=== PATIENT | female | born 1985 | race Caucasian/White ===

== ENCOUNTER 2017-02-24 17:50 | Emergency (ER) | payer OTHER ==
[2017-02-24 18:01] VITALS: BP 122/60; PULSE 85; RESP 16; TEMP 98.3
[2017-02-24] MEDS ORDERED: valACYclovir 500 MG TAB PO STA (18:17)
--- NOTE | 2017-02-24 18:20 | ED ---
ENT HPI - General Chief complaint: ENT Stated complaint: SUN POISENING ON LIPS Time Seen by Provider: 02/24/17 18:07 Source: patient, RN notes reviewed Mode of arrival: ambulatory Limitations: no limitations - History of Present Illness Initial comments: 32 yo female presents to the ER with cc of sores on the lips. Patient states that this started yesterday. Patient states she was in [place] for a week and states that she did not wear sunscreen her last day there. Patient states that her lips swollen and tender. Patient states that she took Tylenol without much improvement. Patient states she is currently . Patient states she's not having any other symptoms at this time.Patient denies any recent fever, chills, shortness of breath, chest pain, back pain, abdominal pain, nausea vomiting, numbness or tingling, dysuria or hematuria, constipation or diarrhea, headaches or visual changes, or any other current symptoms. - Related Data Home Medications Medication Instructions Recorded Confirmed Pnv with Ca,No.72/Iron/FA 1 each PO 02/24/17 [ Plus Tablet] Previous Rx's Medication Instructions Recorded valACYclovir HCL [Valtrex] 2,000 mg PO Q12HR #2 tab 02/24/17 Allergies Allergy/AdvReac Type Severity Reaction Status Date / Time chlorhexidine Allergy Rash/Hives Verified 02/24/17 18:03 Sulfa (Sulfonamide Allergy Unknown Verified 02/24/17 18:03 Antibiotics) Childhood Review of Systems ROS Statement: Those systems with pertinent positive or pertinent negative responses have been documented in the HPI. ROS Other: All systems not noted in ROS Statement are negative. Past Medical History Additional Past Medical History / Comment(s): endometriosis, kidney stones History of Any Multi-Drug Resistant Organisms: None Reported Past Surgical History: Breast Surgery Additional Past Surgical History / Comment(s): cervical Past Psychological History: No Psychological Hx Reported Smoking Status: Never smoker Past Alcohol Use History: None Reported Past Drug Use History: None Reported General Exam Limitations: no limitations General appearance: alert, in no apparent distress Head exam: Present: atraumatic, normocephalic, normal inspection Eye exam: Present: normal appearance, PERRL, EOMI. Absent: scleral icterus, conjunctival injection, periorbital swelling ENT exam: Present: normal oropharynx, other (Does appear to have multiple blistering vesicles to the lip diffusely.) Neck exam: Present: normal inspection. Absent: tenderness, meningismus, lymphadenopathy Respiratory exam: Present: normal lung sounds bilaterally. Absent: respiratory distress, wheezes, rales, rhonchi, stridor Cardiovascular Exam: Present: regular rate, normal rhythm, normal heart sounds. Absent: systolic murmur, diastolic murmur, rubs, gallop, clicks Neurological exam: Present: alert, oriented X3 Psychiatric exam: Present: normal affect, normal mood Skin exam: Present: warm, dry, intact, normal color. Absent: rash Course Vital Signs 02/24/17 17:55 Temperature 98.3 F Pulse Rate 85 Respiratory 16 Rate Blood Pressure 122/60 O2 Sat by Pulse 99 Oximetry Medical Decision Making - Medical Decision Making 32-year-old female presents with what appears to be a herpes labialis outbreak. We will put her on Valtrex. We did discuss continuing Tylenol for pain control. Discussed return parameters and follow-up. We discussed all the patient's questions. She stated that she understood and is in agreement with plan. She will be discharged. Disposition Clinical Impression: Herpes labialis Disposition: HOME SELF-CARE Condition: Stable Instructions: Valacyclovir (By mouth) Additional Instructions: Please use medication as discussed. Please follow up with family doctor if symptoms have not improved over the next two days. Please return to the emergency room if your symptoms increase or worsen or for any other concerns. Prescriptions: valACYclovir HCL [Valtrex] 2,000 mg PO Q12HR #2 tab Referrals: Maribeth Jc DO [Primary Care Provider] - 1-2 days Time of Disposition: 18:19
== END 2017-02-24 18:31 | disposition home or self-care (01) ==
LOC: EC 17:50
DX: O98.511 Other viral diseases complicating pregnancy, first trimester (principal); B00.1 Herpesviral vesicular dermatitis; Z3A.11 11 weeks gestation of pregnancy; Z79.899 Other long term (current) drug therapy; Z88.2 Allergy status to sulfonamides; Z88.8 Allergy status to other drugs, medicaments and biological substances
CPT/HCPCS: 99282

== ENCOUNTER → 2019-06-06 | Outpatient (CLI) | payer BC ==
--- NOTE | 2019-06-07 08:13 | US ---
EXAMINATION TYPE: US transvaginal DATE OF EXAM: 06/06/2019 COMPARISON: NONE CLINICAL HISTORY: T83.9XXA IUD Complication; N94.1 Dyspareunia. TECHNIQUE: Transvaginal (TV). Date of LMP: 05/27/19 EXAM MEASUREMENTS: Uterus: 7.5 x 3.7 x 4.3 cm Endometrial Stripe: 0.5 cm Right Ovary: 3.0 x 2.3 x 2.1 cm Left Ovary: 2.4 x 2.5 x 2.1 cm 1. Uterus: Anteverted wnl 2. Endometrium: wnl 3. Right Ovary: wnl 4. Left Ovary: wnl 5. Bilateral Adnexa: prominent vasculature in left adnexa 6. Posterior cul-de-sac: wnl IMPRESSION: 1. Centrally placed intrauterine device. No endometrial thickening. Physiologic ovarian follicles are seen bilaterally, peripherally oriented that can also be seen in polycystic ovarian syndrome. Correl ate with serum laboratory values and clinical symptoms. 2. Prominent vasculature of the left adnexa can be seen in pelvic congestion syndrome.
== END | disposition home or self-care (01) ==
LOC: RADUSWWP 15:35
PROVIDERS: ATTEND Obstetrics & Gynecology
DX: N94.10 Unspecified dyspareunia (principal); Z97.5 Presence of (intrauterine) contraceptive device
CPT/HCPCS: 76830

== ENCOUNTER → 2023-12-10 | Outpatient (CLI) | payer BC ==
--- NOTE | 2023-12-13 19:39 | MM ---
Reason for Exam: Screening (asymptomatic). Indicated Problems: Lump or thickening of the left side for 3 Day(s). Patient History: Menarche at age 13. First Full-Term at age 32. Late child-bearing (after 30). Patient has history of breast feeding. Patient used Hormonal Contraceptives for 15 years. 08/2012, Bilateral Implants. Last menstrual period: 11/21/2023 Risk Values: Marjorie 5 year model risk: 0.5%. NCI Lifetime model risk: 13.8%. Tissue Density: The breast tissue is heterogeneously dense. This may lower the sensitivity of mammography. Findings: Analyzed By CAD. Bilateral retropectoral silicone implants. Multiple areas of bilateral nodularity are present. Palpable marker placed along the left breast. No suspicious microcalcification is seen. Overall Assessment: Incomplete: need additional imaging evaluation, BI-RAD 0 Management: Special View Mammogram of both breasts. Diagnostic Breast Ultrasound of both breasts. Additional views right breast to include 3-D CC rolled and 3-D lateral views. Additional views left breast to include 3-D CC rolled and 3 lateral views. Subsequent bilateral breast ultrasounds. Also include the patient's left-sided palpable site. [facility] will attempt to contact patient to return for supplemental views and ultrasound if indicated. Electronically signed and approved by: Silke Styles M.D. Radiologist
== END | disposition home or self-care (01) ==
LOC: RADMAMWWP 12:02
PROVIDERS: ATTEND Obstetrics & Gynecology
DX: Z12.31 Encounter for screening mammogram for malignant neoplasm of breast (principal); N63.20 Unspecified lump in the left breast, unspecified quadrant; Z98.82 Breast implant status
CPT/HCPCS: 77063; 77067

== ENCOUNTER → 2023-12-15 | Outpatient (CLI) | payer BC ==
--- NOTE | 2023-12-15 08:22 | MM ---
Reason for Exam: Additional evaluation requested from abnormal screening. Last screening mammogram was performed less than 1 month ago. Patient History: Menarche at age 13. First Full-Term at age 32. Late child-bearing (after 30). Patient has history of breast feeding. Patient used Hormonal Contraceptives for 15 years. 08/2012, Bilateral Implants. Risk Values: Marjorie 5 year model risk: 0.5%. NCI Lifetime model risk: 13.8%. Prior Study Comparison: 12/10/2023 Bilateral MG 3D screen mammo imp/cad., [facility]. Tissue Density: The breast tissue is heterogeneously dense. This may lower the sensitivity of mammography. Findings: Analyzed By CAD. On the right, the lateral area of nodular asymmetric density does not clearly persist. However, there is a persisting 1.2 cm isodense nodule posterior 12:00 position. Ultrasound recommended. On the left, scattered small millimeter and smaller circumscribed nodules remain. Further ultrasound evaluation recommended to include the patient's palpable site. Overall Assessment: Incomplete: need additional imaging evaluation, BI-RAD 0 Management: Diagnostic Breast Ultrasound of both breasts. Electronically signed and approved by: Silke Styles M.D. Radiologist
--- NOTE | 2023-12-15 09:04 | USB ---
Reason for Exam: Clinical finding. Patient History: Menarche at age 13. First Full-Term at age 32. Late child-bearing (after 30). Patient has history of breast feeding. Patient used Hormonal Contraceptives for 15 years. 08/2012, Bilateral Implants. Risk Values: Marjorie 5 year model risk: 0.5%. NCI Lifetime model risk: 13.8%. Technique: Method: Targeted. Prior Study Comparison: 12/10/2023 Bilateral MG 3D screen mammo imp/cad., [facility]. Findings: The whole breast of the left breast, the upper outer quadrant of the right breast, the axilla of both breasts and the retroareolar of both breasts were scanned. Targeted ultrasound right breast upper outer quadrant 9:00 to 12:00 including scanning of the subareolar region and axilla. * At the 12:00 position, 6 cm from the nipple, there is a 1.3 cm benign cyst, likely mammographic correlate. * Additional scattered small cysts and cyst clusters are present measuring up to 6 mm at the 9:00 position. * No suspicious solid area or axillary lymphadenopathy. Whole left breast ultrasound is performed including scanning of the subareolar region and axilla. * Scattered small benign cysts are present for example, 2 mm at 12:00, 7 mm at 2:00, 6 mm at 5:00, and 4 mm at 11:00. This 11:00 cyst corresponds to the patient's palpable site. No suspicious solid mass or axillary lymphadenopathy. Underlying bilateral breast implants. Overall Assessment: Probably benign, BI-RAD 3 Management: Diagnostic Mammogram of both breasts in 6 months. To reassess the bilateral areas of breast nodularity, likely corresponding to the cysts on ultrasound. A clinical breast exam by your physician is recommended on an annual basis and results should be correlated with mammographic findings. This exam should not preclude additional follow-up of suspicious palpable abnormalities. Results were given to the patient verbally at the time of exam. Electronically signed and approved by: Silke Styles M.D. Radiologist
== END | disposition home or self-care (01) ==
LOC: RADMAMWWP 07:48
PROVIDERS: ATTEND Obstetrics & Gynecology
DX: R92.8 Other abnormal and inconclusive findings on diagnostic imaging of breast (principal)
CPT/HCPCS: 77062; 77066

== ENCOUNTER → 2024-10-12 | Outpatient (CLI) | payer BC ==
--- NOTE | 2024-10-12 08:35 | MM ---
Reason for Exam: Follow-up at short interval from prior study. Last screening mammogram was performed 10 month(s) ago. Patient History: Menarche at age 13. First Full-Term at age 32. Late child-bearing (after 30). Patient has history of breast feeding. Patient used Hormonal Contraceptives for 15 years. 08/2012, Bilateral Implants. Risk Values: Marjorie 5 year model risk: 0.6%. NCI Lifetime model risk: 13.7%. Prior Study Comparison: 12/10/2023 Bilateral MG 3D screen mammo imp/cad., [facility]. 12/15/2023 Bilateral MG 3D work up w/cad [facility], [facility]. 12/15/2023 Bilateral US breast workup limited [facility], [facility]. Tissue Density: The breasts are heterogeneously dense, which may obscure small masses. Findings: Bilateral breast implants remain intact. Chronic nodularity seen bilaterally. Follow-up ultrasound is advised. No suspicious microcalcifications present. Overall Assessment: Incomplete: need additional imaging evaluation, BI-RAD 0 Management: Diagnostic Breast Ultrasound of both breasts. . Results were given to the patient verbally at the time of exam. Patient should continue monthly self-breast exams. A clinical breast exam by your physician is recommended on an annual basis. This exam should not preclude additional follow-up of suspicious palpable abnormalities. Note on Marjorie scores and lifetime risk: 1. A Marjorie score greater than 3% is considered moderate risk. If this is the case, consider specialist referral to assess eligibility for a risk reducing agent. 2. If overall lifetime risk for the development of breast cancer is 20% or higher, the patient may qualify for future screening with alternating mammogram and breast MRI. [facility], , 10/12/2024 8:33 AM. Electronically signed and approved by: Compa Moore M.D. Radiologis
--- NOTE | 2024-10-12 09:17 | USB ---
Reason for Exam: Follow-up at short interval from prior study. Patient History: Menarche at age 13. First Full-Term at age 32. Late child-bearing (after 30). Patient has history of breast feeding. Patient used Hormonal Contraceptives for 15 years. 08/2012, Bilateral Implants. Risk Values: Marjorie 5 year model risk: 0.6%. NCI Lifetime model risk: 13.7%. Technique: Method: Targeted. Prior Study Comparison: 12/10/2023 Bilateral MG 3D screen mammo imp/cad., [facility]. 12/15/2023 Bilateral MG 3D work up w/cad [facility], [facility]. Findings: The whole breast of the left breast, the upper outer quadrant of the right breast, the axilla of both breasts and the retroareolar of both breasts were scanned. There are stable bilateral simple cysts noted. There is a new indeterminate hypoechoic area noted at the left 12:00 position 5 cm from the nipple for which tissue diagnosis is recommended.. Overall Assessment: Suspicious, BI-RAD 4 Management: Ultrasound Core Biopsy of the left breast. A clinical breast exam by your physician is recommended on an annual basis and results should be correlated with mammographic findings. This exam should not preclude additional follow-up of suspicious palpable abnormalities. Results were given to the patient verbally at the time of exam. [facility], , 10/12/2024 9:15 AM. Electronically signed and approved by: Compa Moore M.D. Radiologis
== END | disposition home or self-care (01) ==
LOC: RADMAMWWP 08:00
PROVIDERS: ATTEND Obstetrics & Gynecology
DX: R92.8 Other abnormal and inconclusive findings on diagnostic imaging of breast (principal); R92.333 Mammographic heterogeneous density, bilateral breasts; Z98.82 Breast implant status
CPT/HCPCS: 77062; 77066

== ENCOUNTER → 2024-10-24 | Day surgery (SDC) | payer BC ==
--- NOTE | 2024-10-31 12:40 | USB ---
The procedure of ultrasound guided core biopsy was explained to the patient. Benefits, alternatives, and risks were discussed. Discussion regarding implant rupture was performed. An informed consent was then obtained. A timeout was performed. The patient was placed in supine positioning for imaging and for the procedure. The overlying skin was prepped and draped in usual sterile fashion. Lidocaine was used as anesthetic into the skin and subcutaneous tissue up to area of concern in the left breast. A small skin juni was made with surgical scalpel. Under ultrasound guidance, a 12-gauge vacuum assisted biopsy gun device was used to obtain 5 core samples. A biopsy clip was left in lesion. Hydromark butterfly core marker was placed. The patient tolerated the procedure well without any immediate complication. The patient was kept in the radiology department for short stay after the procedure and then discharged home in stable condition. Postprocedure mammogram: The patient was transferred to mammography for physician ordered post procedure mammogram for clip placement verification. Post procedure mammogram demonstrates the clip in appropriate placement. Impression: Successful ultrasound guided core biopsy of area of concern in the left breast, full pathology results to follow. Recommendations: 1. Recommendations are pending pathology results. [facility], , 10/24/2024 11:08 AM Pathology Results: Benign Pathology and radiology were reviewed. Findings are concordant. LEFT BREAST, TWELVE O'CLOCK 5 CM FROM NIPPLE, NEEDLE CORE BIOPSY: Benign breast with fibrocystic changes. Recommendation Follow up mammogram of the left breast in 6 months. DAWN
== END ==
LOC: RADUSWWP 07:35
PROVIDERS: ATTEND Surgery
DX: R92.8 Other abnormal and inconclusive findings on diagnostic imaging of breast (principal)
CPT/HCPCS: 88305; 19083; A4648

== ENCOUNTER → 2024-11-09 | Outpatient (CLI) | payer BC ==
[2024-11-09 13:17] VITALS: BP 114/78; PULSE 81; RESP 16; TEMP 97.1
--- NOTE | 2024-11-09 13:49 | P.GSCN ---
History of Present Illness Consult date: 11/09/24 Reason for Consult: left breast biopsy via ultrasound Requesting physician: Fernando Jc History of present illness: Nikki is a 39 year old female seen in consultation for Dr. Jc regarding an ultrasound guided biopsy of the left breast. She had a bilateral screening mammogram on 12-10-23, recommendation for bilateral diagnostic mammogram and ultrasound. Ultrsound done on 12-15-23 and BIRAD 3 repeat in 6 mo nths. On 10-12-24 she had bilat diagnostic mammogram BIRAD 0 this led to bilateral breast ultrasound on 10-12-24. BIRAD 4, recommend biopsy of the left breast at 12:00. This was done on 10-24-24 and was felt to be benign concordant. Repeat left breast mammogram in 6 months. Bilateral mammogram in 1 year. Nikki has bilateral implants, 2011. She had a left breast lift in 2011. She is getting them removed, they are silicone. She is not complaining of any new lumps or masses in either breast. caffeine: 1/2 to 1 cup coffee/day nicotine: none chocolate: occasional BCP: 14 to 30, she has endometriosis nonhormonal IUD now gone hormones: none Family History: maternal great grandmother: breast cancer maternal grandfather: prostate Hormonal History: menarche: 13 , age at : 32, breast fed: yes periods now more regular Surgical History: rhinoplasty breast implants left mastopexy laporoscopy for endometriosis ear tubes/tonsil and adenoids Medical History: none Social History: nicotine: none alcohol: none drugs: none Review of Systems - Constitutional Denies fever, Denies weight loss - EENT Eyes: denies blurred vision Ears: deny: decreased hearing, tinnitus Ears, nose, mouth and throat: Denies dysphagia - Breasts bilateral: as per HPI - Cardiovascular Denies chest pain, Denies shortness of breath - Respiratory Denies cough, Denies 7 - Gastrointestinal Reports as per HPI - Genitourinary Genitourinary: Denies dysuria, Denies hematuria Menstruation: Reports as per HPI - Musculoskeletal Reports as per HPI - Integumentary Denies rash, Denies unusual bruising - Neurological Denies headaches, Denies syncope - Psychiatric Reports as per HPI - Endocrine Reports as per HPI - Hematologic/Lymphatic Reports as per HPI - Allergic/Immunologic Reports as per HPI, Reports seasonal allergies Past Medical History Additional Past Medical History / Comment(s): endometriosis, kidney stones History of Any Multi-Drug Resistant Organisms: None Reported Past Surgical History: Breast Surgery Additional Past Surgical History / Comment(s): laparoscopic for endometriosis. Bilat breast implants 2012, silicone. Rhinoplasty Past Anesthesia/Blood Transfusion Reactions: No Reported Reaction Past Psychological History: No Psychological Hx Reported Smoking Status: Never smoker Past Alcohol Use History: None Reported Past Drug Use History: None Reported - Past Family History Father Family Medical History: Hypertension Medications and Allergies Home Medications Medication Instructions Recorded Confirmed Type No Known Home Medications 10/12/24 11/09/24 History Allergies Allergy/AdvReac Type Severity Reaction Status Date / Time chlorhexidine Allergy Rash/Hives Verified 11/09/24 13:15 Sulfa (Sulfonamide Allergy Unknown Verified 11/09/24 13:15 Antibiotics) Childhood adhesive tape AdvReac Rash/Hives Verified 11/09/24 13:15 Surgical - Exam Vital Signs Temp Pulse Resp BP Pulse Ox 97.1 F L 81 16 114/78 97 11/09/24 13:15 11/09/24 13:15 11/09/24 13:15 11/09/24 13:15 11/09/24 13:15 - General no distress - Eyes normal ocular movement - Neck trachea midline - Respiratory normal respiratory effort, clear to auscultation - Cardiovascular Rhythm: regular Heart Sounds: normal: S1, S2 - Abdomen Abdomen: soft, non tender, no guarding, no rigid, no rebound - Integumentary normal turgor - Neurologic no disoriented, no combative - Musculoskeletal normal gait - Psychiatric oriented to time, oriented to person, oriented to place, speech is normal, memory intact Breast Exam: BRA: 34DD Inspection: Well-healed scars bilaterally related to breast implants, bilateral grade 2 ptosis Palpation: Right breast: Multi positional exam no dominant masses or nodules of concern Right axilla: No adenopathy of concern Left breast: Multi positional exam ecchymosis in the upper outer quadrant area near recent biopsy with some slight increased nodularity of the tissue but no discrete dominant masses or nodules of concern Left axilla: No adenopathy of concern Results Mammogram and ultrasound personally reviewed/biopsy site left breast benign concordant Assessment and Plan Assessment: Impression: Fibrocystic breast changes Radiographic change left breast 12:00 region 4 ultrasound core biopsy/biopsy done 10-24-2024 benign concordant Bilateral breast implants Plan: Patient would like to have the implants removed this will be done in the near future Repeat left breast mammogram and ultrasound in 6 months with examination at that time Sooner any questions or concerns CC: Dr. Jc, Dr. Cruz
== END ==
LOC: WWCWWP 13:03
PROVIDERS: ATTEND Surgery
DX: N60.19 Diffuse cystic mastopathy of unspecified breast (principal); N64.59 Other signs and symptoms in breast; Z98.82 Breast implant status; Z80.3 Family history of malignant neoplasm of breast; Z88.2 Allergy status to sulfonamides; Z91.09 Other allergy status, other than to drugs and biological substances; Z88.8 Allergy status to other drugs, medicaments and biological substances